=== PATIENT | female | born 1995 | race Caucasian/White ===

== ENCOUNTER → 2017-02-02 | Outpatient (CLI) | payer OTHER ==
[~2017-02-02] MED LIST: AMIT10TA PO
== END | disposition home or self-care (01) ==
LOC: CFH 09:14
PROVIDERS: ATTEND Nurse Practitioner Family
DX: R05 Cough (principal)
CPT/HCPCS: 71020

== ENCOUNTER 2017-05-20 10:14 | Outpatient (CLI) | payer OTHER ==
[~2017-05-20] VITALS: Ht 167.6 cm; Wt 79.8 kg
[2017-05-20] MEDS ORDERED: TERBUTALINE 1 MG/ML, 1ML ONE (11:14)
[2017-05-20] MEDS ORDERED: TERBUTALINE 1 MG/ML, 1ML IV ONE (12:00)
== END 2017-05-20 14:00 | disposition home or self-care (01) ==
LOC: LDOP 10:14
PROVIDERS: ATTEND Obstetrics & Gynecology
DX: O26.893 Other specified pregnancy related conditions, third trimester (principal); R10.9 Unspecified abdominal pain; Z3A.30 30 weeks gestation of pregnancy
CPT/HCPCS: 36415; 59025; 81001; 82731; 87086; 99211; G0463

== ENCOUNTER 2017-05-23 09:57 | Outpatient (CLI) | payer OTHER ==
[~2017-05-23] VITALS: Ht 167.6 cm; Wt 77.2 kg
[2017-05-23 10:10] VITALS: BP 119/58
== END 2017-05-23 11:50 | disposition home or self-care (01) ==
LOC: LDOP 09:57
PROVIDERS: ATTEND Obstetrics & Gynecology
DX: O42.913 Preterm premature rupture of membranes, unspecified as to length of time between rupture and onset of labor, third trimester (principal); Z3A.31 31 weeks gestation of pregnancy
CPT/HCPCS: 59025; 89060; 99211; G0463; Q0114

== ENCOUNTER 2017-05-26 18:06 | Outpatient (CLI) | payer OTHER ==
[2017-05-26 18:53] VITALS: BP 114/63
== END 2017-05-26 20:20 | disposition home or self-care (01) ==
LOC: LDOP 18:06
PROVIDERS: ATTEND Obstetrics & Gynecology
DX: O26.893 Other specified pregnancy related conditions, third trimester (principal); R10.9 Unspecified abdominal pain; Z3A.32 32 weeks gestation of pregnancy
CPT/HCPCS: 59025; 81003; 87086; 99211; G0463

== ENCOUNTER 2017-06-17 17:57 | Outpatient (CLI) | payer OTHER ==
[~2017-06-17] VITALS: Ht 167.6 cm; Wt 79.5 kg
[2017-06-17 18:39] VITALS: BP 123/69
[2017-06-17 18:49] LABS: AMNI OBC PASS; AMNISURE NEGATIVE (NEGATIVE)
[2017-06-17] MEDS ORDERED: ACET650S21 PO (18:51)
[2017-06-17] MEDS ORDERED: PREN1TAB60 PO (18:51)
== END 2017-06-17 19:25 | disposition home or self-care (01) ==
LOC: LDOP 17:57
PROVIDERS: ATTEND Obstetrics & Gynecology
DX: O42.913 Preterm premature rupture of membranes, unspecified as to length of time between rupture and onset of labor, third trimester (principal); O46.93 Antepartum hemorrhage, unspecified, third trimester; Z3A.35 35 weeks gestation of pregnancy
CPT/HCPCS: 59025; 84112; 99211; G0463

== ENCOUNTER 2017-07-02 17:10 | Outpatient (CLI) | payer OTHER ==
[~2017-07-02] VITALS: Ht 167.6 cm; Wt 78.2 kg
[~2017-07-02 17:10] MED LIST changes: +ACET650S21 PO; +PREN1TAB60 PO
[2017-07-02 17:32] VITALS: BP 131/71
== END 2017-07-02 19:29 | disposition home or self-care (01) ==
LOC: LDOP 17:10
PROVIDERS: ATTEND Obstetrics & Gynecology
DX: O26.893 Other specified pregnancy related conditions, third trimester (principal); O62.9 Abnormality of forces of labor, unspecified; O99.343 Other mental disorders complicating pregnancy, third trimester; F32.9 Major depressive disorder, single episode, unspecified; R10.9 Unspecified abdominal pain; Z3A.37 37 weeks gestation of pregnancy
CPT/HCPCS: 59025; 99211; G0463

== ENCOUNTER 2017-07-18 11:04 | Outpatient (CLI) | payer OTHER ==
[~2017-07-18] VITALS: Ht 167.6 cm; Wt 81.8 kg
[2017-07-18 12:00] LABS: HEMATOCRIT 33.1 % (34.6-47.8); HEMOGLOBIN 10.9 g/dL (11.7-16.4); WHITE BLOOD COUNT 9.5 x10^3/uL (3.4-10)
[2017-07-18 12:09] LABS: BLOOD UREA NITROGEN 4 mg/dL (7-18)
[2017-07-18 12:13] LABS: ASPARTATE AMINO TRANSFERASE 13 U/L (15-37)
[2017-07-21] MEDS ORDERED: ASCO10004 PO (23:51)
== END 2017-07-18 13:25 | disposition home or self-care (01) ==
LOC: LDOP 11:04
PROVIDERS: ATTEND Obstetrics & Gynecology Maternal & Fetal Medicine
DX: O13.3 Gestational [pregnancy-induced] hypertension without significant proteinuria, third trimester (principal); O99.343 Other mental disorders complicating pregnancy, third trimester; F32.9 Major depressive disorder, single episode, unspecified; Z3A.39 39 weeks gestation of pregnancy
CPT/HCPCS: 36415; 59025; 80053; 81001; 82248; 82570; 84156; 84550; 85025; 99211; G0463

== ENCOUNTER 2017-10-28 11:11 | Emergency (ER) | payer OTHER ==
[~2017-10-28] VITALS: Ht 167.6 cm; Wt 55.0 kg
[~2017-10-28 11:11] MED LIST changes: +ASCO10004 PO; +IBUP-1222 PO; +OXYC-302 PO
[2017-10-28 11:19] VITALS: BP 126/76
[2017-10-28] MEDS ORDERED: KETOROLAC 30 MG/1 ML ONE (11:58)
[2017-10-28] MEDS ORDERED: KETOROLAC 30 MG/1 ML IVPush ONE ×2 (12:00)
[2017-10-28 12:26] LABS: HCG UR SG 1.016 (1.003-1.030); MICROSCOPIC NOT IND
[2017-10-28 12:27] LABS: BASOPHILS # (AUTO) 0.03 x10^3/uL (0-0.1); BASOPHILS % (AUTO) 1 % (0-1); EOSINOPHILS # (AUTO) 0.02 x10^3/uL (0-0.4); EOSINOPHILS % (AUTO) 0 % (1-7); LYMPHOCYTES # (AUTO) 2.02 x10^3/uL (1-3.4); LYMPHOCYTES % (AUTO) 37 % (22-44); MD NO; MEAN CORPUSCULAR HGB CONC 33.4 g/dL (32.4-35.8); MEAN PLATELET VOLUME 8.8 fL (7.4-10.4); MONOCYTES # (AUTO) 0.35 x10^3/uL (0.2-0.8); MONOCYTES % (AUTO) 6 % (2-9); NEUTROPHILS # (AUTO) 3.07 x10^3/uL (1.8-6.8); NEUTROPHILS % (AUTO) 56 % (42-75); PLATELET COUNT 297 x10^3/uL (130-400); RED BLOOD COUNT 5.41 x10^6/uL (3.82-5.3); RED CELL DISTRIBUTION WIDTH 14.7 % (9.6-15.2)
[2017-10-28 12:32] LABS: CULTURE INDICATED? NO
[2017-10-28 12:37] LABS: ALBUMIN 3.9 g/dL (3.4-5.0); ANION GAP 5 mmol/L (5-15); CALCIUM 8.7 mg/dL (8.5-10.1); CHLORIDE 108 mmol/L (98-107)
[2017-10-28 12:41] LABS: ALANINE AMINOTRANSFERASE 23 U/L (12-78); ALKALINE PHOSPHATASE 91 U/L (45-117); BILIRUBIN,TOTAL 0.5 mg/dL (0.2-1.0); CREATININE 0.64 mg/dL (0.55-1.02); TOTAL PROTEIN 7.3 g/dL (6.4-8.2)
== END 2017-10-28 13:55 | disposition home or self-care (01) ==
LOC: ED 12:00
DX: R10.32 Left lower quadrant pain (principal)
CPT/HCPCS: 36415; 74021; 80053; 81003; 81025; 83690; 85025; 96374; 99285; J1885

== ENCOUNTER 2018-10-08 21:38 | Emergency (ER) | payer OTHER ==
[~2018-10-08] VITALS: Ht 167.6 cm; Wt 60.0 kg
[2018-10-08 21:45] VITALS: BP 122/77
[2018-10-08] MEDS ORDERED: ACETAMINOPHEN 325 MG TABLET ONE (22:23)
[2018-10-08] MEDS ORDERED: ACETAMINOPHEN 325 MG TABLET PO ONE (22:30)
--- NOTE | 2018-10-08 22:55 | NUR ---
PT'S CHART UP FOR RECHECK
== END 2018-10-08 23:44 | disposition home or self-care (01) ==
LOC: ED 22:05
DX: S09.93XA Unspecified injury of face, initial encounter (principal); Z88.1 Allergy status to other antibiotic agents; Y04.0XXA Assault by unarmed brawl or fight, initial encounter; Y93.89 Activity, other specified; Y92.009 Unspecified place in unspecified non-institutional (private) residence as the place of occurrence of the external cause; Y99.8 Other external cause status
CPT/HCPCS: 70486; 99284

== ENCOUNTER 2019-03-26 09:31 | Emergency (ER) | payer OTHER ==
[~2019-03-26] VITALS: Ht 167.6 cm; Wt 65.0 kg
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
[2019-03-26] MEDS ORDERED: SODIUM CHLORIDE FLUSH 10ML SYR IVF ONE (10:00)
[2019-03-26] MEDS ORDERED: LORazepam 2 MG/ML, 1ML IVPush ONE (10:00)
[2019-03-26] MEDS ORDERED: LORazepam 2 MG/ML, 1ML ONE (10:07)
[2019-03-26 10:09] LABS: BASOPHILS # (AUTO) 0.02 x10^3/uL (0-0.1); BASOPHILS % (AUTO) 0 % (0-1); EOSINOPHILS # (AUTO) 0.02 x10^3/uL (0-0.4); EOSINOPHILS % (AUTO) 0 % (1-7); LYMPHOCYTES # (AUTO) 1.72 x10^3/uL (1-3.4); LYMPHOCYTES % (AUTO) 33 % (22-44); MD NO; MEAN CORPUSCULAR HEMOGLOBIN 30.5 pg (27.0-34.8); MEAN CORPUSCULAR HGB CONC 33.6 g/dL (32.4-35.8); MEAN CORPUSCULAR VOLUME 90.9 fL (80-100); MEAN PLATELET VOLUME 8.2 fL (7.4-10.4); MONOCYTES # (AUTO) 0.37 x10^3/uL (0.2-0.8); MONOCYTES % (AUTO) 7 % (2-9); NEUTROPHILS # (AUTO) 3.13 x10^3/uL (1.8-6.8); NEUTROPHILS % (AUTO) 60 % (42-75); PLATELET COUNT 290 x10^3/uL (130-400); RED BLOOD COUNT 5.12 x10^6/uL (3.82-5.3); RED CELL DISTRIBUTION WIDTH 13.1 % (9.6-15.2)
--- NOTE | 2019-03-26 10:13 | NUR ---
PT'S MOM REQUESTED RN PRESENCE. PT STATES "IT'S HAPPENING AGAIN" AND STARTED COMPLAINING OF C/P. PT'S HR UP TO 122. MD AT BEDSIDE, MEDICATED WITH ATIVAN, EKG COMPLETED.
[2019-03-26 10:21] LABS: ALBUMIN 3.9 g/dL (3.4-5.0); ANION GAP 6 mmol/L (5-15); CALCIUM 8.7 mg/dL (8.5-10.1); CHLORIDE 110 mmol/L (98-107); CREATININE 0.73 mg/dL (0.55-1.02)
[2019-03-26 10:24] LABS: TROPONIN I < 0.015 ng/mL (0.000-0.045)
[2019-03-26 10:44] VITALS: BP 131/84
--- NOTE | 2019-03-26 10:45 | NUR ---
PT RESTING COMFORTABLY ON GURNEY, PLAN FOR CTA.
--- NOTE | 2019-03-26 11:00 | NUR ---
EPISODE OF INCREASE IN HR TO 105 BRIEFLY WITH PVCs NOTED. PT TEARY. HR THEN BACK TO 80s WITHOUT PVCs WITHIN A FEW MINTUES
--- NOTE | 2019-03-26 12:38 | NUR ---
Patient/Caregiver given discharge instructions and they have confirmed that they understand the instructions. Patient ambulatory with steady gait.
== END 2019-03-26 12:39 | disposition home or self-care (01) ==
LOC: ED 12:33
DX: F41.1 Generalized anxiety disorder (principal); R07.89 Other chest pain; G40.909 Epilepsy, unspecified, not intractable, without status epilepticus
CPT/HCPCS: 36415; 71045; 71275; 80048; 82040; 83880; 84484; 85025; 93005; 96374; 99284; J2060

== ENCOUNTER 2019-03-26 17:29 | Inpatient (IN) | payer OTHER ==
[~2019-03-26] VITALS: Ht 167.6 cm; Wt 76.4 kg
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
[2019-03-26] MEDS ORDERED: ACETAMINOPHEN 325 MG TABLET PO ONE (18:30)
[2019-03-26 18:36] LABS: ALBUMIN 3.9 g/dL (3.4-5.0); ANION GAP 7 mmol/L (5-15); CALCIUM 8.9 mg/dL (8.5-10.1); CHLORIDE 110 mmol/L (98-107); CREATININE 0.94 mg/dL (0.55-1.02)
[2019-03-26 18:40] LABS: TROPONIN I < 0.015 ng/mL (0.000-0.045)
--- NOTE | 2019-03-26 18:54 | NUR ---
PT RESTING IN BED AND LAUGHING WITH FATHER. FATHER PLAYING WITH BED AND ASKED TO STOP TO PREVENT INJURY. PT APPEARS MORE AWAKE AND CHEERFUL. ASKING FOR FOOD AT THIS TIME.
[2019-03-26] MEDS ORDERED: ONDANSETRON 2MG/ML, 2ML IVPush PRN (22:00)
[2019-03-26] MEDS ORDERED: KETOROLAC 30 MG/1 ML IV PRN (22:00)
[2019-03-26] MEDS: ENOXAPARIN 40 MG/0.4 ML SQ SCH (22:18)
[2019-03-26] MEDS: LACTATED RINGERS 1,000 ML IV SCH (22:18)
[2019-03-26 22:32] VITALS: BP 112/69
[2019-03-26 22:45] VITALS: BP 104/68
[2019-03-26 22:48] VITALS: BP 105/64
[2019-03-26 22:51] VITALS: BP 95/61
[2019-03-27 04:52] VITALS: BP 99/60
[2019-03-27 05:58] VITALS: BP 119/66
[2019-03-27 06:14] LABS: BASOPHILS # (AUTO) 0.03 x10^3/uL (0-0.1); BASOPHILS % (AUTO) 1 % (0-1); EOSINOPHILS # (AUTO) 0.05 x10^3/uL (0-0.4); EOSINOPHILS % (AUTO) 1 % (1-7); LYMPHOCYTES # (AUTO) 2.09 x10^3/uL (1-3.4); LYMPHOCYTES % (AUTO) 41 % (22-44); MD NO; MEAN CORPUSCULAR HEMOGLOBIN 29.9 pg (27.0-34.8); MEAN CORPUSCULAR VOLUME 90.6 fL (80-100); MEAN PLATELET VOLUME 8.1 fL (7.4-10.4); MONOCYTES # (AUTO) 0.38 x10^3/uL (0.2-0.8); MONOCYTES % (AUTO) 7 % (2-9); NEUTROPHILS # (AUTO) 2.52 x10^3/uL (1.8-6.8); NEUTROPHILS % (AUTO) 50 % (42-75); PLATELET COUNT 260 x10^3/uL (130-400); RED BLOOD COUNT 4.86 x10^6/uL (3.82-5.3); RED CELL DISTRIBUTION WIDTH 13.2 % (9.6-15.2)
[2019-03-27 06:23] LABS: ANION GAP 8 mmol/L (5-15); CALCIUM 8.6 mg/dL (8.5-10.1); CHLORIDE 109 mmol/L (98-107); CHOLESTEROL, TOTAL 148 mg/dL (140-239); CREATININE 0.76 mg/dL (0.55-1.02); TRIGLYCERIDES 89 mg/dL (50-200); VLDL CHOLESTEROL 18 mg/dL (0-25)
[2019-03-27 06:24] LABS: HDL CHOL % 33 % (28-40); HDL CHOLESTEROL (DIRECT) 49 mg/dL (40-60); LDL CHOLESTEROL,CALCULATED 81 mg/dL (54-169); LDL/HDL RATIO 1.7 (0.5-3.0)
[2019-03-27 07:35] VITALS: BP 114/71
[2019-03-27 09:20] LABS: TROPONIN I < 0.015 ng/mL (0.000-0.045)
[2019-03-27] MEDS: ACETAMINOPHEN 325 MG TABLET PO PRN ×2 (11:29→20:07)
[2019-03-27 14:01] VITALS: BP 111/66
[2019-03-27 14:07] LABS: ANION GAP 7 mmol/L (5-15); CALCIUM 8.5 mg/dL (8.5-10.1); CHLORIDE 110 mmol/L (98-107); CREATININE 0.81 mg/dL (0.55-1.02)
[2019-03-27 19:02] VITALS: BP 135/75
[2019-03-27] MEDS: LACTATED RINGERS 1,000 ML IV SCH (19:45)
[2019-03-27] MEDS: ENOXAPARIN 40 MG/0.4 ML SQ SCH (22:00)
[2019-03-28] VITALS (7 sets, daily range): BP systolic 98–137; BP diastolic 59–78
[2019-03-28 05:26] LABS: ANION GAP 5 mmol/L (5-15); CALCIUM 8.1 mg/dL (8.5-10.1); CHLORIDE 110 mmol/L (98-107)
[2019-03-28 05:28] LABS: CREATININE 0.71 mg/dL (0.55-1.02)
[2019-03-28] MEDS ORDERED: LIDOCAINE 1%, 20ML ONE ×2 (07:55→11:59)
[2019-03-28] MEDS ORDERED: ACET325T26 PO (14:29)
== END 2019-03-28 15:44 | disposition home or self-care (01) | DRG 42 ==
LOC: ED 19:10 → EDIP 19:15 → 5SO 20:32
PROVIDERS: ADMIT Family Medicine; ATTEND Family Medicine
PROC: 0JH632Z Insertion of Monitoring Device into Chest Subcutaneous Tissue and Fascia, Percutaneous Approach (ICD-10-PCS; principal; 2019-03-26)
PROC: 4A12X4Z Monitoring of Cardiac Electrical Activity, External Approach (ICD-10-PCS; 2019-03-26)
DX: G40.909 Epilepsy, unspecified, not intractable, without status epilepticus (principal); I49.3 Ventricular premature depolarization; G43.909 Migraine, unspecified, not intractable, without status migrainosus; F41.9 Anxiety disorder, unspecified; Z82.49 Family history of ischemic heart disease and other diseases of the circulatory system; Z87.891 Personal history of nicotine dependence; Z88.1 Allergy status to other antibiotic agents
CPT/HCPCS: 33285; 36415; 99285; J3490; 71045; 80048; 80061; 82040; 82330; 82607; 83735; 84100; 84443; 84484; 85025; 93005; 93017; 93306; 95819; 96374; C1764; G0378; J1650; J1885; J7120

== ENCOUNTER 2019-04-10 08:06 | Day surgery (SDC) | payer OTHER ==
[~2019-04-10] VITALS: Ht 167.6 cm; Wt 60.0 kg
[~2019-04-10 08:06] MED LIST changes: +ACET325T26 PO
[2019-04-10 08:25] VITALS: BP 130/77
[2019-04-10] MEDS ORDERED: ISOPROTERENOL 0.2MG/ML, 5ML ONE (10:29)
== END 2019-04-10 11:30 | disposition home or self-care (01) ==
LOC: CACL 08:06
PROVIDERS: ATTEND Internal Medicine Cardiovascular Disease
DX: R55 Syncope and collapse (principal); Z79.899 Other long term (current) drug therapy; Z88.8 Allergy status to other drugs, medicaments and biological substances; Z82.49 Family history of ischemic heart disease and other diseases of the circulatory system
CPT/HCPCS: 93660

== ENCOUNTER → 2020-01-04 | Outpatient (CLI) | payer OTHER ==
[~2020-01-04] MED LIST changes: +DILT120T3 PO; +FLEC100T PO
== END | disposition home or self-care (01) ==
LOC: RAD 09:00
PROVIDERS: ATTEND Family Medicine
DX: N13.2 Hydronephrosis with renal and ureteral calculous obstruction (principal); N13.4 Hydroureter
CPT/HCPCS: 74176

== ENCOUNTER 2020-12-15 05:41 | Emergency (ER) | payer OTHER ==
[~2020-12-15] VITALS: Ht 167.6 cm; Wt 67.3 kg
[~2020-12-15 05:41] MED LIST changes: +ASCO100018 PO; -ASCO10004 PO; -OXYC-302 PO; +OXYC1TAB14 PO
[2020-12-15] MEDS ORDERED: ONDANSETRON 2MG/ML, 2ML IVPush ONE (06:30)
[2020-12-15] MEDS ORDERED: SODIUM CHLORIDE FLUSH 10ML SYR IVF ONE (06:30)
[2020-12-15] MEDS ORDERED: HYDROmorphone 1 MG/ML, 1ML INJ IVPush PRN (06:30)
--- NOTE | 2020-12-15 06:46 | NUR ---
Patient presents to ER c/o RUQ abd pain since 0000. Patient states she got up to the BR and the pain started suddenly and she became dizzy. Patient denies urinary symptoms. Patient is in NAD. Respirations even and unlabored.
[2020-12-15] MEDS ORDERED: ONDANSETRON 2MG/ML, 2ML ONE (06:49)
[2020-12-15] MEDS ORDERED: HYDROmorphone 1 MG/ML, 1ML INJ ONE (06:49)
[2020-12-15 06:55] LABS: MICROSCOPIC NOT IND
[2020-12-15 06:55] LABS: BASOPHILS % (AUTO) 0 % (0-1); EOSINOPHILS % (AUTO) 0 % (1-7); LYMPHOCYTES % (AUTO) 28 % (22-44); MEAN CORPUSCULAR HEMOGLOBIN 30.9 pg (27.0-34.8); MEAN CORPUSCULAR HGB CONC 34.6 g/dL (32.4-35.8); MEAN PLATELET VOLUME 7.8 fL (7.4-10.4); MONOCYTES % (AUTO) 5 % (2-9); NEUTROPHILS % (AUTO) 67 % (42-75); PLATELET COUNT 260 x10^3/uL (130-400); RED BLOOD COUNT 5.43 x10^6/uL (3.82-5.3); RED CELL DISTRIBUTION WIDTH 13.1 % (9.6-15.2)
[2020-12-15 06:57] LABS: MD NO
--- NOTE | 2020-12-15 06:59 | NUR ---
Report to [facility]. Patient care transferred.
[2020-12-15 07:04] LABS: ALANINE AMINOTRANSFERASE 20 U/L (12-78); ALBUMIN 4.1 g/dL (3.4-5.0); ANION GAP 8 mmol/L (5-15); CHLORIDE 108 mmol/L (98-107); CREATININE 0.77 mg/dL (0.55-1.02)
[2020-12-15 07:08] LABS: ALKALINE PHOSPHATASE 76 U/L (45-117); BILIRUBIN,TOTAL 0.5 mg/dL (0.2-1.0)
[2020-12-15] MEDS ORDERED: MAALOX/HYOSCYAMINE/LIDOCAINE 45 ML BTL ONE (08:28)
[2020-12-15] MEDS ORDERED: MAALOX/HYOSCYAMINE/LIDOCAINE 45 ML BTL PO ONE (08:30)
--- NOTE | 2020-12-15 08:36 | NUR ---
PT LAYING ON GUJAYA. FAMILY AT BS. NAD/VSS. NO NEEDS AT THIS TIME. CALL LIGHT WITHIN REACH.
--- NOTE | 2020-12-15 09:40 | NUR ---
PT LAYING ON FAMILY MARGARET AT BS. VSS. COMFORT MEASURES PROVIDED. CALL LIGHT WITHIN REACH.
[2020-12-15 09:57] VITALS: BP 125/69
--- NOTE | 2020-12-15 10:01 | NUR ---
Patient given discharge instructions and they have confirmed that they understand the instructions. Patient ambulatory with steady gait.
== END 2020-12-15 10:02 | disposition home or self-care (01) ==
LOC: ED 06:49
DX: K29.00 Acute gastritis without bleeding (principal); R94.31 Abnormal electrocardiogram [ECG] [EKG]; J45.909 Unspecified asthma, uncomplicated; G40.909 Epilepsy, unspecified, not intractable, without status epilepticus; Z90.89 Acquired absence of other organs
CPT/HCPCS: 36415; 76700; 80053; 81003; 83690; 84703; 85025; 93005; 96374; 96375; 99285; J1170; J2405